=== PATIENT | female | born 1980 | race Caucasian/White ===

== ENCOUNTER 2021-09-06 16:27 | Outpatient (CLI) | payer OTHER | END 2021-09-06 16:28 | disposition home or self-care (01) | LOC: NAV CT 16:27 | PROVIDERS: ATTEND Family Medicine | DX: M54.6 Pain in thoracic spine (principal); M54.50 Low back pain, unspecified; R10.9 Unspecified abdominal pain; M47.814 Spondylosis without myelopathy or radiculopathy, thoracic region; M47.816 Spondylosis without myelopathy or radiculopathy, lumbar region; M51.26 Other intervertebral disc displacement, lumbar region; M47.817 Spondylosis without myelopathy or radiculopathy, lumbosacral region; N20.0 Calculus of kidney; N28.89 Other specified disorders of kidney and ureter | CPT/HCPCS: 72128; 72131; 74176 ==

== ENCOUNTER → 2021-09-06 | Day surgery (SDC) | payer OTHER ==
[~2021-09-06] MED LIST: Sodium Chloride 0.9% 2,000 ML ONE
== END ==
LOC: NAV ER/OP 17:49
PROVIDERS: ATTEND Family Medicine
DX: E86.0 Dehydration (principal); M54.6 Pain in thoracic spine; M54.50 Low back pain, unspecified; R10.9 Unspecified abdominal pain; M47.814 Spondylosis without myelopathy or radiculopathy, thoracic region; M47.816 Spondylosis without myelopathy or radiculopathy, lumbar region; M51.26 Other intervertebral disc displacement, lumbar region; M47.817 Spondylosis without myelopathy or radiculopathy, lumbosacral region; N20.0 Calculus of kidney; N28.89 Other specified disorders of kidney and ureter
CPT/HCPCS: 72128; 72131; 74176; J7050

== ENCOUNTER 2021-10-30 15:05 | Emergency (ER) | payer OTHER, SELFPAY ==
[2021-10-30] MEDS ORDERED: Sodium Chloride 0.9% 1,000 ML ONE (15:42)
[2021-10-30 15:57] LABS: #Basophils 0.1 thou/uL (0.0-0.2); #Lymphocytes 2.5 thou/uL (1.20-3.40); #Monocytes 0.7 thou/uL (0.11-0.59); %Basophils 0.7 % (0.0-1.0); %Eosinophils 0.2 % (0.0-10.0); %Lymphocytes 20.4 % (21.0-51.0); %Monocytes 5.6 % (0.0-10.0); %Neutrophils 73.1 % (42.0-75.0); Hemoglobin 12.5 g/dL (12.0-16.0); Mean Corpuscular HGB CONC 31.4 g/dL (32.0-36.0); Mean Corpuscular Hemoglobin 27.4 pg (27.0-31.0); Mean Corpuscular Volume 87.1 fL (78.0-98.0); Mean Platelet Volume 5.7 fL (7.4-10.4); Platelet Count 520 thou/uL (130-400); Red Blood Cell (RBC) Count 4.58 mill/uL (4.20-5.40); White Blood Cell (WBC) Count 12.3 thou/uL (4.8-10.8)
[2021-10-30 16:12] LABS: Anion Gap 17 mmol/L (10-20); BUN (Urea Nitrogen) 23 mg/dL (7.0-18.7); Calc. Creatinine Clearance 0 mL/min (70-130); Calcium 9.4 mg/dL (7.8-10.44); Carbon Dioxide 20 mmol/L (22-29); Chloride 104 mmol/L (98-107); Glucose 96 mg/dL (70-105); Potassium 3.9 mmol/L (3.5-5.1); Sodium 137 mmol/L (136-145)
== END 2021-10-30 17:43 | disposition home or self-care (01) ==
LOC: NAV ERS 15:05
DX: E86.0 Dehydration (principal); F17.290 Nicotine dependence, other tobacco product, uncomplicated
CPT/HCPCS: 80048; 85025; 99284; J7050

== ENCOUNTER 2022-02-02 11:08 | Outpatient (CLI) | payer BC | END 2022-02-02 11:09 | disposition home or self-care (01) | LOC: NAV LAB 11:08 | PROVIDERS: ATTEND Family Medicine | DX: R06.00 Dyspnea, unspecified (principal); R06.02 Shortness of breath; R00.2 Palpitations | CPT/HCPCS: 85379 ==

== ENCOUNTER 2023-12-09 18:32 | Emergency (ER) | payer BC, OTHER ==
[2023-12-09] MEDS ORDERED: Acetaminophen 500 MG TAB ONE (19:09)
== END 2023-12-09 20:35 | disposition home or self-care (01) ==
LOC: NAV ERS 18:32
DX: S86.011A Strain of right Achilles tendon, initial encounter (principal); I10 Essential (primary) hypertension; Z79.899 Other long term (current) drug therapy; Z87.891 Personal history of nicotine dependence; W23.1XXA Caught, crushed, jammed, or pinched between stationary objects, initial encounter